=== PATIENT | female | born 1965 | race African-American/Black ===

== ENCOUNTER 2021-04-12 12:32 | Outpatient (CLI) | payer BC, SELFPAY ==
--- NOTE | ~2021-04-12 | XR_ITS ---
XR lumbar spine 2-3V 04/12/2021 13:04 Indication: Low back pain Procedure: 3 views lumbar spine Comparison: No prior studies for comparison. Findings: Vertebral body and disc heights are preserved. No fracture, subluxation or dislocation. No evidence for spondylolisthesis. Sacral foramen are symmetric. Pedicles intact. Impression: 1: No significant abnormality of the lumbar spine. Reviewed, dictated and finalized at location A. Impression: 1: No significant abnormality of the lumbar spine.
--- NOTE | ~2021-04-12 | XR_ITS ---
EXAMINATION: XR hip RT min 2V DATE: 04/12/2021 13:03 INDICATION: Right hip pain. TECHNIQUE: 2 views of right hip were obtained. COMPARISON: None. FINDINGS: Bone alignment is normal. No fracture. There is moderate right hip osteoarthritis. IMPRESSION: 1. Moderate right hip osteoarthritis. Reviewed, dictated and finalized at location B.
== END 2021-04-12 12:33 ==
PROVIDERS: PCP Internal Medicine; Visit Provider Internal Medicine
DX: R10.31 Right lower quadrant pain (principal); M16.11 Unilateral primary osteoarthritis, right hip
CPT/HCPCS: 72100; 73502

== ENCOUNTER 2021-04-20 15:35 | Outpatient (CLI) | payer BC, SELFPAY ==
--- NOTE | ~2021-04-20 | CT_ITS ---
EXAMINATION: CT abdomen pelvis w con DATE: 04/20/2021 16:15 INDICATION: Right lower quadrant abdominal pain. TECHNIQUE: Computed tomography (CT) of the abdomen and pelvis was performed with 100 mL Omnipaque 350 intravenous contrast. Automated exposure control and iterative reconstruction technique were employe d. The dose-length product was 1106.81 mGy-cm. COMPARISON: CT abdomen and pelvis 10/26/2004 FINDINGS: The visualized portions of the lung bases demonstrate mild atelectasis. No pleural effusion . The heart size is normal. No pericardial effusion. There is a small sliding hiatal hernia. The live r, gallbladder, spleen, pancreas, adrenal glands, and kidneys are normal. There is diverticulosis of the colon without evidence of diverticulitis. The appendix is normal. There are no dilated loops of b owel. There are no pathologically enlarged lymph nodes. There is no free intraperitoneal fluid. There is mild thoracolumbar spondylosis. There are benign bone islands in the pelvis, proximal femora, and L3 vertebral body. There is moderate bilateral hip joint osteoarthritis. IMPRESSION: 1. Small sliding hiatal hernia. Reviewed, dictated and finalized at location A.
== END 2021-04-20 15:36 ==
PROVIDERS: PCP Internal Medicine; Visit Provider Internal Medicine
DX: R10.31 Right lower quadrant pain (principal); K44.9 Diaphragmatic hernia without obstruction or gangrene; K57.30 Diverticulosis of large intestine without perforation or abscess without bleeding; M47.815 Spondylosis without myelopathy or radiculopathy, thoracolumbar region
CPT/HCPCS: 74177; Q9967